=== PATIENT | male | born 1960 | race Caucasian/White ===

== ENCOUNTER 2020-02-25 11:24 | Day surgery (SDC) | payer BC ==
[~2020-02-25] VITALS: Ht 175.3 cm; Wt 88.0 kg
[2020-02-25 12:02] VITALS: BP 123/83
[2020-02-25] MEDS ORDERED: IBUP-1984 PO (12:09)
[2020-02-25] MEDS ORDERED: FLO0.4C PO (12:09)
[2020-02-25] MEDS ORDERED: ACET-890 PO (12:09)
[2020-02-25 13:08] VITALS: BP 128/79
[2020-02-25 13:15] VITALS: BP 129/77
[2020-02-25 13:26] VITALS: BP 117/79
[2020-02-25 13:45] VITALS: BP 130/84
== END 2020-02-25 13:55 | disposition home or self-care (01) ==
LOC: SSTAY O 11:24
PROVIDERS: ATTEND Radiology Diagnostic Radiology
DX: R19.09 Other intra-abdominal and pelvic swelling, mass and lump (principal); C82.35 Follicular lymphoma grade IIIa, lymph nodes of inguinal region and lower limb; Z88.2 Allergy status to sulfonamides; Z88.5 Allergy status to narcotic agent; Z88.8 Allergy status to other drugs, medicaments and biological substances; Z79.899 Other long term (current) drug therapy
CPT/HCPCS: 20206; 27040; 76942

== ENCOUNTER 2025-07-02 10:41 | Outpatient (CLI) | payer MEDICARE, BC ==
[~2025-07-02 10:41] MED LIST: ACET-890 PO; IBUP-1984 PO; TAMS-55 PO
== END 2025-07-02 23:59 | disposition home or self-care (01) ==
LOC: RAD 10:41
PROVIDERS: ATTEND Surgery
DX: K51.90 Ulcerative colitis, unspecified, without complications (principal); K62.89 Other specified diseases of anus and rectum; I77.819 Aortic ectasia, unspecified site
CPT/HCPCS: Q9967

== ENCOUNTER 2025-07-02 10:59 | Outpatient (CLI) | payer MEDICARE, BC ==
[2025-06-29 14:46] LABS: CREATININE 1.36 MG/DL (0.60-1.10); TOTAL CARBON DIOXIDE 31.7 MMOL/L (24-32); eGFR 52 ML/MIN
--- NOTE | 2025-07-02 13:58 | RADIOLOGY REPORT ---
Indication: AORTIC ECTASIA, ULCERTIVE COLITIS Technique: CT axial images of the chest abdomen and pelvis are obtained with intravenous contrast per angiogram protocol. Coronal and sagittal reformats were obtained. Radiation Dose Information: CTDI volume is 25 mGy. Dose-length product is 1894 mGy*cm Comparison: None FINDINGS: Heart normal in size. Ascending aorta measures 3.9 x 3.7 cm. The descending thoracic aorta measures 2.9 x 3 cm. Aortic tortuosity. No large defect within the main left right pulmonary arteries. The abdominal aorta is tortuous. No evidence for abdominal aortic aneurysmal dilatation / dissection. Infrarenal abdominal aorta measures 2.2 cm. The trachea is patent. No pneumothorax. Bilateral atelectasis. No pulmonary airspace consolidation. No mediastinal/ hilar lymphadenopathy. No supraclavicular/axillary lymphadenopathy. Multiple thyroid nodules measuring up to 1.3 cm. Adrenal glands, spleen, pancreas unremarkable. No enhancing hepatic lesion. Cholecystectomy. Bilateral renal cysts. No hydronephrosis. Stomach is partially distended. Small bowel loops moderately distended. Right abdominal ostomy. Postsurgical changes large bowel/subtotal colectomy. Dilated loop of bowelm in the lower abdomen / pelvis measuring 6.9 cm in diameter Bladder is distended. There soft tissue density in the region of the rectum measuring 2.4 cm, 2.1 cm. No inguinal lymphadenopathy. There is moderate to advanced lumbar degenerative disc disease most pronounced at L1-2, L2-3. IMPRESSION: Aortic tortuosity. Borderline dilatation of the ascending aorta to 3.9 cm and descending thoracic aorta to 3 cm. Mild dilatation infrarenal abdominal aorta to 2.2 cm. Thyroid nodules up to 1.3 cm. Recommend thyroid ultrasound to further characterize. Postsurgical changes large bowel/subtotal colectomy. Right abdominal ostomy. Dilated loop of bowel within the lower abdomen / pelvis up to 6.9 cm which could represent postsurgical changes, obstructive changes. Correlate with clinical symptoms. Soft tissue density in the expected region of the rectal bed measuring 2.4 cm, 2.1 cm. Correlate clinically and with prior imaging. If there is concern for any type of mass / neoplasm , PET scan can be obtained to evaluate. Other findings as described.
== END 2025-07-02 23:59 | disposition home or self-care (01) ==
LOC: RAD 10:59
PROVIDERS: ATTEND Internal Medicine Interventional Cardiology
DX: Q25.46 Tortuous aortic arch (principal); N28.1 Cyst of kidney, acquired; K31.89 Other diseases of stomach and duodenum; N32.89 Other specified disorders of bladder; I77.811 Abdominal aortic ectasia; E04.2 Nontoxic multinodular goiter; J98.11 Atelectasis; K51.90 Ulcerative colitis, unspecified, without complications; M51.369 Other intervertebral disc degeneration, lumbar region without mention of lumbar back pain or lower extremity pain; Z98.890 Other specified postprocedural states
CPT/HCPCS: 36415; 71275; 74177; 80048; Q9967